=== PATIENT | female | born 1965 | race Caucasian/White ===

== ENCOUNTER 2019-07-16 14:52 | Emergency (ER) | payer BC, OTHER ==
--- NOTE | 2019-07-16 15:01 | UC ---
UC General HPI - HPI Summary HPI Summary: Pleasant 53 yo female c/o cough x 5-6 days. + close contact with similar sx. cough very tight. no fever / chills no rash tired, coughs a lot minimal productive. close contact tx'd negative influenza no gi issues reported no pain perse no c/o throat pain has been taking elderberry ext, vitamins has tried a nebulizer, not particularly helpful - History of Current Complaint Stated Complaint: COUGH Time Seen by Provider: 07/16/19 15:00 Hx Obtained From: Patient Hx Last Menstrual Period: 09/16/13 - Allergy/Home Medications Allergies/Adverse Reactions: Allergies Allergy/AdvReac Type Severity Reaction Status Date / Time No Known Allergies Allergy Verified 07/16/19 15:02 Home Medications: Home Medications Albuterol 0.5% CONC NEB.ROHIT* 1 dose PO ONCE 07/16/19 [History Confirmed 07/16/19 ] Azithromyxin KARTIK (NF) [Z-Kartik (Zithromax) 250 mg tabs #6] 2 tab PO .TODAY, THEN 1 DAILY #6 tab 07/16/19 [Rx] Benzonatate CAP* [Tessalon 100 MG CAP*] 100 mg PO TID PRN #30 cap 07/16/19 [Rx] Fluconazole 150 MG TAB* [Diflucan 150 MG TAB*] 150 mg PO DAILY #2 tablet [Rx] Guaifenesin/Dextromethorphan [Robitussin Cough-Chest Dm Liq] 1 dose PO ONCE [History Confirmed 07/16/19] predniSONE 10 mg TAB [Deltasone 10 MG TAB*] 10 mg PO DAILY #20 tab 07/16/19 [Rx] PMH/Surg Hx/FS Hx/Imm Hx Previously Healthy: Yes - Surgical History Surgical History: Yes Surgery Procedure, Year, and Place: gallbladder, appy - Family History Known Family History: Positive: Other - see hpi - Social History Alcohol Use: Occasionally Substance Use Type: None Review of Systems All Other Systems Reviewed And Are Negative: Yes Constitutional: Positive: Fatigue Skin: Positive: Negative Eyes: Positive: Negative ENT: Positive: Other - see hpi Respiratory: Positive: Cough Cardiovascular: Positive: Negative Gastrointestinal: Positive: Negative Genitourinary: Positive: Negative Motor: Positive: Negative Neurovascular: Positive: Negative Musculoskeletal: Positive: Negative Neurological/Mental Status: Positive: Negative Psychological: Positive: Negative Is Patient Immunocompromised?: No Physical Exam Triage Information Reviewed: Yes Appearance: Well-Nourished - sitting up, conversing easily looks tired but nad Vital Signs Reviewed: Yes Eye Exam: Normal ENT: Positive: Pharyngeal erythema - post pharynx + red, no sores / exudates redness c/w cough / post nasal drip, TM dull Neck exam: Normal - mild adenopathy Neck: Positive: Supple, Nontender Respiratory Exam: Other - BS equal + rhonchorus cough, tight Respiratory: Positive: No respiratory distress, No accessory muscle use Cardiovascular Exam: Normal Cardiovascular: Positive: RRR, Pulses Normal, Brisk Capillary Refill Abdominal Exam: Normal Abdomen Description: Positive: Nontender Musculoskeletal Exam: Normal Neurological Exam: Normal - nonfocal Psychological Exam: Normal - nad Skin Exam: Normal - nondiaphoretic no visible or reported rash Course/Dx - Course Course Of Treatment: Reviewed coa / tx plan questions as posed answered to the best of my ability. - Diagnoses Provider Diagnosis: Bronchitis Discharge ED - Sign-Out/Discharge Documenting (check all that apply): Patient Departure All imaging exams completed and their final reports reviewed: No Studies - Discharge Plan Condition: Stable Disposition: HOME Prescriptions: Azithromyxin KARTIK (NF) [Z-Kartik (Zithromax) 250 mg tabs #6] 2 tab PO .TODAY, THEN 1 DAILY #6 tab Benzonatate CAP* [Tessalon 100 MG CAP*] 100 mg PO TID PRN #30 cap PRN Reason: Cough Fluconazole 150 MG TAB* [Diflucan 150 MG TAB*] 150 mg PO DAILY #2 tablet predniSONE 10 mg TAB [Deltasone 10 MG TAB*] 10 mg PO DAILY #20 tab Patient Education Materials: Acute Bronchitis (ED) Referrals: No Primary Care Phys,NOPCP [Primary Care Provider] - - Billing Disposition and Condition Condition: STABLE Disposition: Home
[2019-07-16 15:06] VITALS: BP 124/74
== END 2019-07-16 15:35 | disposition home or self-care (01) ==
LOC: UCCORT 14:52
DX: J40 Bronchitis, not specified as acute or chronic (principal)
CPT/HCPCS: 99202; G0463